=== PATIENT | female | born 1985 | race Caucasian/White ===

== ENCOUNTER 2017-05-22 22:11 | Emergency (ER) | payer MEDICAID ==
[2017-05-22 22:32] VITALS: BP 145/95
--- NOTE | 2017-05-22 22:34 | EDM.PDOC ---
ED HPI GENERAL MEDICAL PROBLEM - General Chief Complaint: Skin Complaint Stated Complaint: RASH, RIGHT ARM Time Seen by Provider: 05/22/17 22:26 Source of Information: Reports: Patient History Limitations: Reports: No Limitations - History of Present Illness INITIAL COMMENTS - FREE TEXT/NARRATIVE: History of present illness: [31-year-old female presenting with pleuritic vesicles linear on her right arm. She believes it is poison anette and that she got from her dog. When she gets poison anette usually has this appearance. She's been using calamine lotion on it. She's had no fever or erythema around the lesions.] Review of systems: As per history of present illness and below otherwise all systems reviewed and negative. Past medical history: As per history of present illness and as reviewed below otherwise noncontributory. Surgical history: As per history of present illness and as reviewed below otherwise noncontributory. Social history: No reported history of drug or alcohol abuse. Family history: As per history of present illness and as reviewed below otherwise noncontributory. Physical exam: HEENT: Atraumatic, normocephalic, Lungs: Clear to auscultation, Heart: S1S2, regular, Abdomen: Soft, nondistended, nontender. Pelvis: Stable nontender. Genitourinary: Deferred. Rectal: Deferred. Extremities: Examination of her right arm does show a linear lesion of vesicles that is about 10-12 cm long that across the antecubital fossa with most of these are flaccid. It appears consistent with poison anette Neuro: Awake, alert, oriented. Exam nonfocal. Diagnostics: [] Therapeutics: [] Impression: [Poison anette] Plan: [She's provided with tapering doses of prednisone and continue with calamine lotion and other local cares that she's been doing.] Definitive disposition and diagnosis as appropriate pending reevaluation and review of above. - Related Data Allergies Allergy/AdvReac Type Severity Reaction Status Date / Time No Known Allergies Allergy Verified 05/22/17 22:22 Home Meds: Home Meds NK [No Known Home Meds] 10/31/13 [History] Past Medical History Neurological History: Reports: Head Trauma - Past Surgical History Female Surgical History: Reports: Tubal Ligation Social & Family History - Tobacco Use Smoking Status *Q: Current Every Day Smoker Years of Tobacco use: 15 Packs/Tins Daily: 0.5 - Alcohol Use Days Per Week of Alcohol Use: 0 - Recreational Drug Use Recreational Drug Use: No Drug Use in Last 12 Months: Yes Recreational Drug Type: Reports: Marijuana/Hashish Recreational Drug Use Frequency: Not Used In Over 1 Year ED ROS GENERAL - Review of Systems Review Of Systems: ROS reveals no pertinent complaints other than HPI. ED EXAM, SKIN/RASH Exam: See Below Departure - Departure Time of Disposition: 22:33 Disposition: Home, Self-Care 01 Condition: Good Clinical Impression: Poison anette dermatitis - Discharge Information Referrals: Tracey Valle NP [Primary Care Provider] - Additional Instructions: If you're not improving over the next week to 10 days in spite of our treatment I would recommend that you follow-up with your primary care provider.
== END 2017-05-22 22:44 | disposition home or self-care (01) ==
LOC: JP.ED 22:11
DX: L25.5 Unspecified contact dermatitis due to plants, except food (principal); F17.210 Nicotine dependence, cigarettes, uncomplicated; Z98.51 Tubal ligation status
CPT/HCPCS: 99283

== ENCOUNTER 2018-03-09 08:30 | Emergency (ER) | payer MEDICAID ==
[2018-03-09 08:46] VITALS: BP 109/62
[2018-03-09] MEDS ORDERED: Albuterol 0.083% 2.5 MG/3 ML Neb Soln NEB STA (08:54)
[2018-03-09] MEDS ORDERED: diphenhydrAMINE 25 MG Cap PO ONE (08:54)
[2018-03-09] MEDS ORDERED: methylPREDNISolone Sodium Succinate 125 MG/2 ML SDV IM ONE (08:54)
--- NOTE | 2018-03-09 09:03 | EDM.PDOC ---
ED HPI GENERAL MEDICAL PROBLEM - General Chief Complaint: General Stated Complaint: POISON NANDINI, LUNGS BURNING Time Seen by Provider: 03/09/18 08:51 Source of Information: Reports: Patient, Old Records, RN Notes Reviewed History Limitations: Reports: No Limitations - History of Present Illness INITIAL COMMENTS - FREE TEXT/NARRATIVE: 32-year-old female presents to the emergency department today with complaint of rash and the sensation of difficulty breathing and throat burning, she does have a issue of poison nandini exposure which has caused problems in the past last exacerbation was about one year ago. 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: Neurological History: Reports: Head Trauma - Past Surgical History Female Surgical History: Reports: Tubal Ligation Social & Family History - Tobacco Use Smoking Status *Q: Current Every Day Smoker Years of Tobacco use: 15 Packs/Tins Daily: 0.5 - Caffeine Use Caffeine Use: Reports: Coffee, Soda - Recreational Drug Use Recreational Drug Use: Yes Recreational Drug Type: Reports: Marijuana/Hashish Recreational Drug Use Frequency: Monthly ED ROS GENERAL - Review of Systems Review Of Systems: See Below Constitutional: Reports: No Symptoms HEENT: Reports: Throat Swelling Respiratory: Reports: Shortness of Breath, Cough. Denies: Wheezing, Sputum Cardiovascular: Reports: No Symptoms GI/Abdominal: Reports: No Symptoms : Reports: No Symptoms Musculoskeletal: Reports: No Symptoms Skin: Reports: No Symptoms Neurological: Reports: No Symptoms ED EXAM, SKIN/RASH Exam: See Below Text/Narrative:: Examination of the integument system right arm on the inner aspect she has 2 areas of linear streaking with vesicles there is erythema around that consistent with a contact dermatitis poison nandini is certainly possible Exam Limited By: No Limitations General Appearance: Alert, Mild Distress Throat/Mouth: Normal Inspection, Normal Lips, Normal Teeth, Normal Gums, Normal Oropharynx, Normal Voice, No Airway Compromise Head: Atraumatic, Normocephalic Neck: Normal Inspection, Supple, Non-Tender, Full Range of Motion Respiratory/Chest: No Respiratory Distress, Lungs Clear, Normal Breath Sounds, No Accessory Muscle Use Cardiovascular: Regular Rate, Rhythm, No Murmur Course - Vital Signs Last Recorded V/S: Last Vital Signs Temp 97.4 F 03/09/18 08:47 Pulse 100 03/09/18 08:47 Resp 17 03/09/18 08:47 BP 109/62 03/09/18 08:47 Pulse Ox 96 03/09/18 08:47 - Orders/Labs/Meds Meds: Medications Discontinued Medications Generic Name Dose Route Start Last Admin Trade Name Raffyq PRN Reason Stop Dose Admin Albuterol 2.5 mg 03/09/18 08:54 03/09/18 09:01 Proventil Neb Soln NEB 03/09/18 08:55 2.5 mg NOW STA Administration Diphenhydramine HCl 25 mg 03/09/18 08:54 03/09/18 09:00 Benadryl PO 03/09/18 08:55 25 mg ONETIME ONE Administration Methylprednisolone Sodium Succinate 125 mg 03/09/18 08:54 03/09/18 09:00 Solu-Medrol IM 03/09/18 08:55 125 mg ONETIME ONE Administration Departure - Departure Time of Disposition: 09:51 Disposition: Home, Self-Care 01 Condition: Good Clinical Impression: Poison nandini dermatitis - Discharge Information Referrals: PCP,None [Primary Care Provider] - Forms: ED Department Discharge Additional Instructions: take full course of steroids, prednisone 60 mg po qd for 5 days then 40 mg po qd for 5 day followed by 20 mg for 5 days then stop follow up with PCP in 3 - 5 days if not better - Assessment/Plan Plan: Assessment Acuity = acute Site and laterality = contact dermititis Etiology = probably poision nandini Manifestations = none Location of injury = Home Lab values =none Plan improvment with solumedrol, benadryl and albutoral neb, rx for prednisone 60 mg po qd for 5 days then 40 mg po qd for 5 day followed by 20 mg for 5 days then stop This note was dictated using [employer] recognition software please call with any questions on syntax or grammar.
== END 2018-03-09 09:55 | disposition home or self-care (01) ==
LOC: JP.ED 08:30
DX: L23.7 Allergic contact dermatitis due to plants, except food (principal); F17.210 Nicotine dependence, cigarettes, uncomplicated
CPT/HCPCS: 94640; 96372; 99284; A9270; J2930

== ENCOUNTER 2019-08-31 19:07 | Emergency (ER) | payer MEDICAID ==
[2019-08-31 19:29] VITALS: BP 118/68; PULSE 85
[2019-08-31] MEDS ORDERED: cefTRIAXone 1 GM in Sodium Chloride 0.9% 50 ML IV ONE (19:33)
[2019-08-31] MEDS ORDERED: Ketorolac 30 MG/ML SDV IVPUSH ONE (19:37)
--- NOTE | 2019-08-31 19:40 | EDM.PDOC ---
ED HPI GENERAL MEDICAL PROBLEM - General Chief Complaint: ENT Problem Stated Complaint: SWOLLEN BOTTOM LEFT JAW Time Seen by Provider: 08/31/19 19:35 Source of Information: Reports: Patient History Limitations: Reports: No Limitations - History of Present Illness INITIAL COMMENTS - FREE TEXT/NARRATIVE: pt has marked swellin under the left chin area. There is swelling of the face. She has pain when she swallowed. She has been hot and cold. Onset: Gradual, Other (Pt has had pain the last 3 days. ) Duration: Hour(s): Location: Reports: Face Associated Symptoms: Reports: Other (pain in the left facial area. 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 ) HEENT: Reports: Dental Pain, Other ( hurts to swallow. ) Respiratory: Reports: No Symptoms Cardiovascular: Reports: No Symptoms Endocrine: Reports: No Symptoms GI/Abdominal: Reports: No Symptoms : Reports: No Symptoms Musculoskeletal: Reports: No Symptoms Skin: Reports: No Symptoms ED EXAM, ENT - Physical Exam Exam: See Below Text/Narrative:: pt arrived with marked facial swellin on the left. She has swelling under the chin. Exam Limited By: No Limitations General Appearance: Alert, Moderate Distress Ears: Normal TMs Nose: Normal Inspection Mouth/Throat: Other (pt has alot of swelling under the left chin area. Her most forward molar is tender and she has a obvious abcess at the base of the tooth. ) Head: Atraumatic Neck: Lymphadenopathy (L) Respiratory/Chest: No Respiratory Distress Cardiovascular: Regular Rate, Rhythm GI/Abdominal: Soft, Non-Tender Course - Vital Signs Last Recorded V/S: Last Vital Signs Temp 36.8 C 08/31/19 19:15 Pulse 85 08/31/19 19:15 Resp 16 08/31/19 19:15 BP 118/68 08/31/19 19:15 Pulse Ox 100 08/31/19 19:15 - Orders/Labs/Meds Labs: Laboratory Tests 08/31/19 Range/Units 19:40 WBC 14.3 H (4.5-11.0) K/uL RBC 4.54 (3.30-5.50) M/uL Hgb 13.8 (12.0-15.0) g/dL Hct 41.8 (36.0-48.0) % MCV 92 (80-98) fL MCH 30 (27-31) pg MCHC 33 (32-36) % Plt Count 221 (150-400) K/uL Neut % (Auto) 80 H (36-66) % Lymph % (Auto) 12 L (24-44) % [place] % (Auto) 8 H (2-6) % Eos % (Auto) 0 L (2-4) % Baso % (Auto) 0 (0-1) % Meds: Medications Discontinued Medications Generic Name Dose Route Start Last Admin Trade Name Freq PRN Reason Stop Dose Admin Sodium Chloride 1,000 mls @ 999 mls/hr 08/31/19 19:45 08/31/19 19:43 Normal Saline IV 999 mls/hr ASDIRECTED POLY Administration Ceftriaxone Sodium 1 gm/ 50 mls @ 100 mls/hr 08/31/19 19:33 08/31/19 19:43 Sodium Chloride IV 08/31/19 20:02 100 mls/hr ONETIME ONE Administration Ketorolac Tromethamine 30 mg 08/31/19 19:37 08/31/19 19:43 Toradol IVPUSH 08/31/19 19:38 30 mg ONETIME ONE Administration - Re-Assessments/Exams Free Text/Narrative Re-Assessment/Exam: 08/31/19 20:28 iv was started and she was given a liter of fluid. She was given 1 gm of rocephen and torodol 30 mg. Departure - Departure Time of Disposition: 21:03 Disposition: Home, Self-Care 01 Condition: Fair Clinical Impression: Dental abscess - Discharge Information Instructions: Dental Abscess, [id number] Referrals: Malaika Shipley MD [Primary Care Provider] - Forms: ED Department Discharge Care Plan Goals: dental appt at dental clinic tomorrow, norco 5/325 every 6 hours as needed for pain # 8. clindomycin 300mg three times a day, use probiotic and yogurt while on antibiotics. motrin 600mg three times a day,
[2019-08-31] MEDS ORDERED: Sodium Chloride 0.9% 1,000 ML IV SCH (19:45)
== END 2019-08-31 21:14 | disposition home or self-care (01) ==
LOC: JP.ED 19:07
DX: K04.7 Periapical abscess without sinus (principal); F17.210 Nicotine dependence, cigarettes, uncomplicated
CPT/HCPCS: 36415; 85025; 87081; 87880; 96365; 96375; 99283; J0696; J1885; J7030; J7050

== ENCOUNTER 2022-07-19 11:02 | Emergency (ER) | payer MEDICAID ==
[2022-07-19 12:03] VITALS: BP 127/57; PULSE 99
== END 2022-07-19 12:40 | disposition home or self-care (01) ==
LOC: JP.ED 11:02
DX: L23.7 Allergic contact dermatitis due to plants, except food (principal); F17.210 Nicotine dependence, cigarettes, uncomplicated
CPT/HCPCS: 99282

== ENCOUNTER 2023-03-16 13:43 | Emergency (ER) | payer MEDICAID ==
[2023-03-16 14:06] VITALS: BP 135/75; PULSE 101
[2023-03-16] MEDS ORDERED: Lidocaine 1% 10 ML MDV INJECT ONE (14:19)
[2023-03-16] MEDS ORDERED: Bacitracin Oint 1 GM U/D Packet TOP ONE (14:24)
== END 2023-03-16 15:33 | disposition home or self-care (01) ==
LOC: JP.ED 13:43
DX: S61.412A Laceration without foreign body of left hand, initial encounter (principal); F17.210 Nicotine dependence, cigarettes, uncomplicated; J45.909 Unspecified asthma, uncomplicated; Z91.048 Other nonmedicinal substance allergy status; W26.0XXA Contact with knife, initial encounter
CPT/HCPCS: 12001; 99283

== ENCOUNTER 2023-10-05 12:42 | Emergency (ER) | payer MEDICAID ==
[2023-10-05] MEDS ORDERED: hydrOXYzine HCL 100 MG/2 ML SDV IM ONE (13:22)
[2023-10-05] MEDS ORDERED: Ketorolac 30 MG/ML SDV IM ONE (13:22)
[2023-10-05 13:42] VITALS: BP 111/70; PULSE 87
== END 2023-10-05 14:59 | disposition home or self-care (01) ==
LOC: JP.ED 12:42
DX: M54.42 Lumbago with sciatica, left side (principal); Z91.048 Other nonmedicinal substance allergy status
CPT/HCPCS: 72100; 72170; 72220; 96372; 99283; J1885; J3410